=== PATIENT | female | born 1990 | race Caucasian/White ===

== ENCOUNTER 2020-11-30 21:10 | Emergency (ER) | payer BC ==
[~2020-11-30 21:10] MED LIST: PERCOCET 5/325 T1 EA PO
[2020-11-30 23:34] LABS: HEMOGLOBIN 15.6 gm/dl (12.3-15.3); RED BLOOD COUNT 5.09 M/UL (4.00-5.10); WHITE BLOOD COUNT 5.8 K/UL (4.5-11.0)
[2020-11-30 23:58] LABS: BUN/CREATININE RATIO 24 (0-10)
[2020-12-01] MEDS ORDERED: IBUPROFEN800 MG PO (02:07)
[2020-12-01] MEDS ORDERED: CYCLOBENZAPRINE10 MG PO (02:07)
== END 2020-12-01 02:00 | disposition home or self-care (01) ==
LOC: ER1 21:10
PROVIDERS: Student in an Organized Health Care Education/Training Program
DX: M54.50 Low back pain, unspecified (principal); Z20.822 Contact with and (suspected) exposure to COVID-19
CPT/HCPCS: 71045; 80053; 81001; 83690; 84703; 85025; 85379; 93005; 96374; 96375; 99284; J1885; J2270; J2405; Q9967; U0002